=== PATIENT | male | born 1980 ===

== ENCOUNTER 2022-12-13 13:51 | Outpatient (REF) | payer MEDICAID, SELFPAY ==
[2022-12-13 17:58] LABS: Appearance Urine Cloudy; Color Urine Yellow; Glucose Urine UA Negative (Negative); Leukocyte Esterase Urine Small (1+) (Negative); Nitrite Urine Negative (Negative); PH 6.5 (5.0-9.0); UMIC TRIGGER UA YES; Urine Blood Negative (Negative); Urine Ketones Negative (Negative); Urine Protein Negative (Neg-Trace)
[2022-12-13 18:01] LABS: Bacteria Urine 4+ (None Seen); Hyaline Casts Urine 0-2 /LPF (0-2); RBC Urine 0-2 /HPF (0-2); Squamous Epithelial Cell Urine 0-2 /HPF (0-2); WBC Urine 21-50 /HPF (0-5)
== END 2022-12-13 13:52 | disposition home or self-care (01) ==
LOC: HO.CHCLNP 13:51
PROVIDERS: Visit Provider Family Medicine
DX: N39.0 Urinary tract infection, site not specified (principal)
CPT/HCPCS: 81001; 87086; 87088; 87186

== ENCOUNTER 2023-02-11 09:52 | Outpatient (REF) | payer MEDICAID, SELFPAY ==
[2023-02-11 15:08] LABS: CDiff Gene PCR POSITIVE (Negative)
[2023-02-11 15:58] LABS: CDiff Toxin Negative (Negative)
[2023-02-11 16:00] LABS: CDIFF Internal ctrl Dots and bkg OK (V)
[2023-02-12 07:57] LABS: Adenovirus F 40/41 Not Detected (Not Detect.); Astrovirus Not Detected (Not Detect.); Campylobacter Not Detected (Not Detect.); Cryptosporidium Not Detected (Not Detect.); Cyclospora cayetanensis Not Detected (Not Detect.); E. coli EAEC Not Detected (Not Detect.); E. coli EPEC Not Detected (Not Detect.); E. coli ETEC Not Detected (Not Detect.); E. coli STEC Not Detected (Not Detect.); Entamoeba histolytica Not Detected (Not Detect.); Giardia lamblia Not Detected (Not Detect.); Norovirus GI/GII Not Detected (Not Detect.); Plesiomonas shigelloides Not Detected (Not Detect.); Rotavirus A Not Detected (Not Detect.); Salmonella Not Detected (Not Detect.); Sapovirus Not Detected (Not Detect.); Shigella sp./EIEC Not Detected (Not Detect.); Vibrio Not Detected (Not Detect.); Vibrio Cholerae Not Detected (Not Detect.); Yersinia enterocolitica Not Detected (Not Detect.)
== END 2023-02-11 09:53 | disposition home or self-care (01) ==
LOC: HO.CHCLNP 09:52
PROVIDERS: Visit Provider Internal Medicine
DX: R19.7 Diarrhea, unspecified (principal)
CPT/HCPCS: 87324; 87493; 87507

== ENCOUNTER 2023-09-05 12:59 | Outpatient (REF) | payer MEDICAID, SELFPAY | END 2023-09-05 13:00 | disposition home or self-care (01) | LOC: HO.CHCLNP 12:59 | PROVIDERS: Visit Provider Internal Medicine | DX: M54.9 Dorsalgia, unspecified (principal); G89.29 Other chronic pain | CPT/HCPCS: 36415; 80307 ==

== ENCOUNTER 2023-11-08 18:18 | Outpatient (REF) | payer MEDICAID, SELFPAY | END 2023-11-08 18:19 | disposition home or self-care (01) | LOC: HO.CHCLNP 18:18 | PROVIDERS: Visit Provider Nurse Practitioner | DX: K21.9 Gastro-esophageal reflux disease without esophagitis (principal) | CPT/HCPCS: 87338 ==

== ENCOUNTER 2023-11-08 19:10 | Outpatient (REF) | payer MEDICAID, SELFPAY ==
[2023-11-09 09:32] LABS: Adenovirus F 40/41 Not Detected (Not Detect.); Astrovirus Not Detected (Not Detect.); Campylobacter Not Detected (Not Detect.); Cryptosporidium Not Detected (Not Detect.); Cyclospora cayetanensis Not Detected (Not Detect.); E. coli EAEC Not Detected (Not Detect.); E. coli EPEC Not Detected (Not Detect.); E. coli ETEC Not Detected (Not Detect.); E. coli STEC Not Detected (Not Detect.); Entamoeba histolytica Not Detected (Not Detect.); Giardia lamblia Not Detected (Not Detect.); Norovirus GI/GII Not Detected (Not Detect.); Plesiomonas shigelloides Not Detected (Not Detect.); Rotavirus A Not Detected (Not Detect.); Salmonella Not Detected (Not Detect.); Sapovirus Not Detected (Not Detect.); Shigella sp./EIEC Not Detected (Not Detect.); Vibrio Not Detected (Not Detect.); Vibrio Cholerae Not Detected (Not Detect.); Yersinia enterocolitica Not Detected (Not Detect.)
== END 2023-11-08 19:11 | disposition home or self-care (01) ==
LOC: HO.CHCLNP 19:10
PROVIDERS: Visit Provider General Practice
DX: A04.71 Enterocolitis due to Clostridium difficile, recurrent (principal)
CPT/HCPCS: 87507

== ENCOUNTER 2024-02-06 15:38 | Outpatient (REF) | payer MEDICAID, SELFPAY | END 2024-02-06 15:39 | disposition home or self-care (01) | LOC: HO.CHCLNP 15:38 | PROVIDERS: Visit Provider Internal Medicine | DX: M54.9 Dorsalgia, unspecified (principal); G89.29 Other chronic pain | CPT/HCPCS: 36415; 80307 ==